=== PATIENT | male | born 1940 | race Caucasian/White ===

== ENCOUNTER → 2022-12-09 10:29 | Outpatient (BNVA) | payer MEDICARE, SELFPAY | PROVIDERS: PCP Family Medicine; Visit Provider Family Medicine | DX: Z00.00 Encounter for general adult medical examination without abnormal findings (principal); R53.83 Other fatigue; R35.1 Nocturia; I10 Essential (primary) hypertension | CPT/HCPCS: 80053; 80061; 82607; 83880; 84153; 85025; 86140 ==

== ENCOUNTER → 2024-04-19 08:59 | Outpatient (BNVA) | payer MEDICARE, OTHER, SELFPAY | PROVIDERS: PCP Family Medicine; Visit Provider Family Medicine | DX: I10 Essential (primary) hypertension (principal); R35.1 Nocturia; R53.83 Other fatigue; R63.4 Abnormal weight loss | CPT/HCPCS: 80053; 80061; 84153; 85025; 85651; 86140 ==

== ENCOUNTER 2024-04-21 08:20 | Outpatient (CLI) | payer MEDICARE, OTHER, SELFPAY ==
--- NOTE | 2024-04-21 08:22 | XR_ITS ---
WS: [id number] XR chest 2V* [id number] REASON FOR EXAM: cough FINDINGS: Moderate tortuosity and ectasia of the thoracic aorta. Normal heart size. Calcified granulomas disease in both hemithoraces. Eventration of the left hemidiaphragm. Bullous changes in the left lower lung. No acute pulmonary parenchymal or pleural abnormality. XR/XR chest 2V* [id number] IMPRESSION: No acute chest abnormality.
== END 2024-04-21 08:21 | disposition home or self-care (01) ==
LOC: RAD 08:21
PROVIDERS: PCP Family Medicine; Visit Provider Family Medicine
DX: J43.9 Emphysema, unspecified (principal); J84.10 Pulmonary fibrosis, unspecified; Q25.46 Tortuous aortic arch; I77.810 Thoracic aortic ectasia; Q79.1 Other congenital malformations of diaphragm; R05.9 Cough, unspecified
CPT/HCPCS: 71046

== ENCOUNTER 2024-05-23 06:00 | Outpatient (CLI) | payer MEDICARE, SELFPAY | END 2024-05-23 06:01 | disposition home or self-care (01) | LOC: RAD 06-01 16:53 | PROVIDERS: PCP Family Medicine; Visit Provider Family Medicine | DX: R63.4 Abnormal weight loss (principal); R79.89 Other specified abnormal findings of blood chemistry; R53.83 Other fatigue; R79.82 Elevated C-reactive protein (CRP); E11.9 Type 2 diabetes mellitus without complications | CPT/HCPCS: 80048; 84443; 86140; 86160; 86162; 86235; 86255; 86376 ==

== ENCOUNTER 2024-05-31 08:15 | Outpatient (CLI) | payer MEDICARE, SELFPAY ==
[2024-05-31] MEDS: iohexol 350 mg/mL 500 mL Btl (per mL) PO (08:29)
--- NOTE | 2024-05-31 08:30 | CT_ITS ---
WS: [id number] CT HEAD NONCONTRAST HISTORY: cva TECHNIQUE: Contiguous axial imaging performed through the brain in 2.0 mm imaging. Bone and soft tiss ue windows. Sagittal and coronal reformats reviewed. All CT scans at [facility] use at least one of these dose optimization techniques: automated exposure control; mA and/or kV adjustment per pa tient size (includes targeted exams where dose is matched to clinical indication); or iterative recon struction. DLP: 1143.51 mGy.cm COMPARISON: None available. No acute intracranial hemorrhage, midline shift or mass effect. Moderate atrophy with mild small vessel disease. No prior infarct. Ventricles: Ventricles are very slightly prominent based on the amount of atrophy. No inferior displacement of the cerebellar tonsils. Mild cerebellar atrophy. Paranasal sinuses: As visualized are clear. Mastoid air cells: Well pneumatized. Calvarium and scalp: Skull is intact with no soft tissue edema or swelling. CT/CT head wo con* [id number] IMPRESSION: 1. No acute intracranial hemorrhage or edema. 2. Moderate atrophy with minimal small vessel ischemic disease. 3. No prior infarct.
--- NOTE | 2024-05-31 09:00 | CT_ITS ---
WS: [id number] CT ABDOMEN AND PELVIS NONCONTRAST HISTORY: elevated Cr, elevated CRP, weight loss TECHNIQUE: Imaging performed through the abdomen and pelvis. Coronal and sagittal reformats are submi tted. All CT scans at [facility] use at least one of these dose optimization techniques: auto mated exposure control; mA and/or kV adjustment per patient size (includes targeted exams where dose is matched to clinical indication); or iterative reconstruction. DLP: 434.03 mGy.cm COMPARISON: None available. Lower thorax: Pulmonary hyperexpansion of the lung bases. No pneumonia. Benign calcified granuloma LE FT lung base. Fullness at the RIGHT hilum. Cannot be further evaluated without IV contrast. Liver: Normal size. Portal vein cannot be evaluated without IV contrast. Gallbladder: Normal gallbladder. No pericholecystic fluid or cholelithiasis. No gallbladder wall thic kening. Pancreas: Diffuse pancreatic atrophy. Spleen: Significantly enlarged spleen extends over a length of 15.0 cm. The normal central concavity is rounded encroaching upon the LEFT kidney. Adrenal glands: LEFT adrenal gland is not well visualized. The RIGHT adrenal gland contains a well-ci rcumscribed nodule measuring 1.3 cm. Right kidney: Mild atrophy. No obstruction. Left kidney: Mild atrophy with no obstruction. Aorta: Heavy dense calcification within the abdominal aorta. No aneurysm. Extensive lymphadenopathy within the abdomen and pelvis. Innumerable enlarged lymph nodes. Numerous m esenteric lymph nodes with the largest near the celiac axis measuring 2.5 cm. There are additional sc attered smaller central mesenteric lymph nodes. Extensive retroperitoneal lymphadenopathy at numerous stations. LEFT para-aortic lymph node 2.1 x 3.1 cm. Precaval and aortocaval and para-aortic lymph no jesse. Lymph nodes are also present rectal aortic. Bilateral iliac chain and pelvic lymph nodes. There is a large cluster of lymph nodes along the LEFT iliac chain measuring at least 4.4 x 3.1 cm. Externa l iliac artery lymph nodes with the largest on the LEFT measuring 3.5 x 4.9 cm. Bilateral inguinal ly mph nodes. There is a small amount of free fluid in the pelvis. Stomach is well distended with oral contrast. No small bowel obstruction. No colon obstruction. Pelvis: Small amount of free fluid. Only partially distended urinary bladder. Inguinal canals are pat ent bilaterally containing fat only. Osseous structures: Moderate spondylitic changes in the visualized thoracic and lumbar spines. No jesse tructive bone lesions. Facet joint arthropathy in the lumbar spine with components of stenosis. CT/CT abdomen pelvis wo con [id number] IMPRESSION: 1. Lymphadenopathy involving multiple stations in the abdomen and pelvis. Larg est lymph node cluster along the LEFT iliac chain 4.4 x 3.1 cm. Central mesente pao, celiac axis, retroperitoneal, iliac chain and pelvic lymph nodes as descri bed above. Findings are highly suspicious for lymphoma or leukemia. 2. Small amount of ascites in the pelvis. 3. Enlarged spleen. 4. Suspicious for lymph nodes at the RIGHT hilum as there is fullness present.
== END 2024-05-31 08:16 | disposition home or self-care (01) ==
LOC: RAD 08:16
PROVIDERS: PCP Family Medicine; Visit Provider Family Medicine
DX: I63.9 Cerebral infarction, unspecified (principal); R63.4 Abnormal weight loss; R79.89 Other specified abnormal findings of blood chemistry; R53.83 Other fatigue; R79.82 Elevated C-reactive protein (CRP); J84.10 Pulmonary fibrosis, unspecified; K86.89 Other specified diseases of pancreas; R16.1 Splenomegaly, not elsewhere classified; D35.01 Benign neoplasm of right adrenal gland; I70.0 Atherosclerosis of aorta; R59.0 Localized enlarged lymph nodes; M47.896 Other spondylosis, lumbar region; M46.94 Unspecified inflammatory spondylopathy, thoracic region
CPT/HCPCS: 70450; 74176; 88305

== ENCOUNTER 2024-05-31 19:03 | Inpatient (IN) | payer MEDICARE, SELFPAY ==
[2024-05-31] VITALS (8 sets, daily range): BP systolic 92–118; BP diastolic 50–65; PULSE 84–103; RESP 14–20; TEMP 37.1; O2SAT 92–98; BMI 25.4; BMI 25.6
--- NOTE | 2024-05-31 19:06 | ECG_ITS ---
[facility] Test Date: 2024-05-31 Pat Name: Isael Champagne Department: Room: Gender: Male It Specialist: : 1940 Requested By: Raciel Dasilva Order Number: [id number] Justin MD: Emily Crow M.D. Measurements Intervals [place] Rate: 93 P: 58 WA: 141 QRS: 57 QRSD: 140 T: 36 QT: 354 QTc: 440 Interpretive Statements SINUS RHYTHM WITH SINUS ARRHYTHMIA RIGHT BUNDLE BRANCH BLOCK [120+ ms QRS DURATION, UPRIGHT V1, 40+ ms S IN I/aVL/V4/V5/V6] No previous ECG available for comparison Electronically Signed On 06-01-2024 0:22:55 CDT by Emily Crow M.D. [email or web address]
--- NOTE | 2024-05-31 19:10 | XRR_ITS ---
PROCEDURE INFORMATION: Exam: XR Chest Exam date and time: 05/31/2024 7:13 PM Age: 83 years old Clinical indication: Tachypnea; Additional info: Weakness TECHNIQUE: Imaging protocol: Radiologic exam of the chest. Views: 1 view. COMPARISON: CR XR chest 2V* [id number] 04/21/2024 8:26 AM FINDINGS: Lungs: Unremarkable. No consolidation. Pleural spaces: Unremarkable. No pleural effusion. No pneumothorax. Heart/Mediastinum: Unremarkable. No cardiomegaly. Vasculature: Atherosclerotic aortic calcifications with tortuosity. Diaphragm: Asymmetric elevation of the right hemidiaphragm. Bones/joints: Unremarkable. XR/XR chest 1V portable [id number] IMPRESSION: No acute cardiopulmonary findings.
[2024-05-31 19:41] LABS: Basophils % 0.1 %; Eosinophils % 0.1 %; Hematocrit 23.5 % (37-53); Lymphocytes # 1.9 10^3/uL (0.8-4.8); Lymphocytes % 25.7 %; Mean Corpuscular HGB Conc 31.9 g/dL (30-55); Mean Corpuscular Hemoglobin 28.3 pg (27-33); Mean Corpuscular Volume 88.7 fl (82-101); Mean Platelet Volume 8.4 fL (7.4-10.4); Monocytes # 0.9 10^3/uL (0.2-0.9); Monocytes % 11.5 %; Neutrophils # 4.56 10^3/uL (1.8-7.7); Neutrophils % 60.7 %; Nucleated Red Blood Cells % 0 %; Platelet Count 173 10^3/cmm (157-399); Red Blood Count 2.65 10^6/uL (3.85-5.65); Red Cell Distribution Width 14.6 % (12.1-15.1); White Blood Count 7.51 10^3/uL (3.29-11.43)
--- NOTE | 2024-05-31 19:51 | W.ED.FALL ---
HPI - Fall General: Chief Complaint: Fall Stated Complaint: FALL; WEAKNESS Time Seen by Provider: 05/31/24 19:04 History of Present Illness: Patient presents to the ER by EMS. Complains of weakness multiple falls. When he was checked on today he was found down on the floor and could not get up out of the floor. He had an unknown downtime. His was placed in a halfway a couple months ago and patient says he just progressively went downhill ever since then. Related Data Home Medications Medication Instructions Recorded Confirmed aspirin 81 mg tablet,delayed 81 mg PO DAILY 12/09/22 05/23/24 release Previous Rx's Medication Instructions Recorded lisinopril 10 mg tablet 10 mg PO DAILY #90 tabs 01/11/24 famotidine 20 mg tablet (Pepcid) 20 mg PO BID #60 tabs 04/19/24 Allergies Allergy/AdvReac Type Severity Reaction Status Date / Time No Known Allergies Allergy Verified 05/23/24 07:11 Review of Systems General: Reports: 10 or more systems reviewed and unremarkable except in HPI and below PFSH ED PFSH: Medical History Hypertension Social History Smoking and tobacco/nicotine status: never used tobacco/nicotine Physical Exam Const: COMMON NORMALS: no acute distress, average body habitus, patient oriented x3, no limitations, healthy appearing, alert and well nourished HENMT: COMMON NORMALS: normocephalic, atraumatic, hearing grossly normal bilaterally, external ears normal, Normal external nose present and moist oral mucous membranes HEAD & SCALP: normocephalic and atraumatic NOSE: Normal external nose present EXTERNAL EAR: Yes external ears normal Neck/C-Spine: COMMON NORMALS: no JVD Chest: COMMONS NORMALS: normal inspection of the chest and normal palpation of entire chest wall Resp: COMMON NORMALS: normal respiratory effort, No retractions, No use of accessory muscles and clear to auscultation bilaterally AUSCULTATION: clear to auscultation bilaterally Cardio: COMMON NORMALS: no JVD, regular rate, regular rhythm, S1 normal heart sound present, S2 normal heart sound present, No gallops present (Cardio), No clicks present (Cardio), No murmurs present (Cardio) and No rub (Cardio) RATE: regular rate RHYTHM: regular rhythm HEART SOUNDS: S1 normal heart sound present and S2 normal heart sound present GI: COMMON NORMALS: Normal to inspection, nondistended, normoactive bowel sounds present, Soft to palpation, non-tender, No hepatosplenomegaly present, no masses and no bruits PALPATION: Yes Soft to palpation and Yes No hepatosplenomegaly present Neuro: COMMON NORMALS: patient oriented x3 SENSORIUM/ORIENTATION: Yes alert Course Vital Signs: Vital signs: Vital Signs Temperature 98.8 F 05/31/24 19:03 Pulse Rate 95 05/31/24 19:09 Respiratory Rate 18 05/31/24 19:09 Blood Pressure 118/65 05/31/24 19:09 Pulse Oximetry 97 05/31/24 19:09 Oxygen Delivery Me thod Room Air 05/31/24 19:09 MDM - Fall Medical Decision Making Patient is becoming more anemic his hemoglobin now 7.5 approximate 6 weeks ago was 11.9, sodium 10/08/2026 1 31-1 34 in the past BUN/creatinine 28 1.7 been 24 1.3, C-reactive protein still elevated at 143.5, urinalysis unremarkable, chest x-ray unremarkable, his PCP did get a head CT which was unremarkable and abdomen pelvis CT which was suspicious for lymphoma or leukemia due to lymphadenopathy involving multiple areas of the abdomen pelvis. Case was discussed with Dr. Boyd who will place patient in [facility] for further evaluation and treatment. Medical Records I reviewed the patient's medical records. Lab Data I reviewed the patient's lab results. 05/31/24 19:24 05/31/24 19:24 Radiology Impressions Chest X-Ray 05/31/24 19:10 IMPRESSION: No acute cardiopulmonary findings. Laboratory Results WBC 7.51 10^3/uL (3.29-11.43) 05/31/24 19: RBC 2.65 10^6/uL (3.85-5.65) L 05/31/24 19: Hgb 7.50 g/dL (11.27-16.99) L 05/31/24 19:24 Hct 23.5 % (37-53) L 05/31/24 19: MCV 88.7 fl (82-101) 05/31/24 19: MCH 28.3 pg (27-33) 05/31/24 19: MCHC 31.9 g/dL (30-55) 05/31/24 19: RDW 14.6 % (12.1-15.1) 05/31/24 19: Plt Count 173 10^3/cmm (157-399) 05/31/24 19: MPV 8.4 fL (7.4-10.4) 05/31/24 19: Neut % (Auto) 60.7 % 05/31/24 19: Lymph % (Auto) 25.7 % 05/31/24 19: [place] % (Auto) 11.5 % 05/31/24: Eos % (Auto) 0.1 % 05/31/24: Baso % (Auto) 0.1 % 05/31/24: Neut # (Auto) 4.56 10^3/uL (1.8-7.7) 05/31/24: Lymph # (Auto) 1.9 10^3/uL (0.8-4.8) 05/31/24: [place] # (Auto) 0.9 10^3/uL (0.2-0.9) 05/31/24: Eos # (Auto) 0.0 10^3/uL (0.0-0.8) 05/31/24: Baso # (Auto) 0.0 10^3/uL (0.0-0.1) 05/31/24: Nucleated RBC % (auto) 0 % 05/31/24: Nucleated RBCs # 0.0 /100WBC 05/31/24 19: Sodium 126 mmol/L (136-145) L 05/31/24 19:24 Potassium 4.0 mmol/L (3.5-5.1) 05/31/24 19: Chloride 93 mmol/L (98-107) L 05/31/24 19:24 Carbon Dioxide 21 mmol/L (22-29) L 05/31/24 19:24 Anion Gap 16.0 (5-19) 05/31/24 19: BUN 28 mg/dL (8-23) H 05/31/24 19:24 Creatinine 1.7 mg/dL (0.7-1.2) H 05/31/24 19:24 GFR Calculation Not Reportable 05/31/24 19:24 Glucose 116 mg/dL (65-115) H 05/31/24 19:24 Calculated Osmolality 268 mOsm/kg (285-295) L 05/31/24 19:24 Calcium 10.3 mg/dL (8.5-10.5) 05/31/24 19:24 Magnesium 2.1 mg/dL (1.7-2.3) 05/31/24 19:24 Total Bilirubin 0.8 mg/dL (0.15-1.2) 05/31/24 19:24 AST 32 U/L (0-40) 05/31/24 19:24 ALT 24 U/L (0-41) 05/31/24 19:24 Alkaline Phosphatase 70 U/L (40-130) 05/31/24 19:24 Creatine Kinase 70 U/L (39-308) 05/31/24 19:24 Troponin T Baseline 33 ng/L (0-15) H 05/31/24 19:24 Troponin T 120 Minute 33.28 ng/L (0-15) H 05/31/24 20:59 Delta Troponin T 0.28 ABS# (0-10) 05/31/24 20:59 C-Reactive Protein 143.5 mg/L (0.0-4.9) H 05/31/24 19:24 Total Protein 7.0 g/dL (6.6-8.7) 05/31/24 19:24 Albumin 2.2 g/dL (3.5-5.2) L 05/31/24 19:24 Globulin 4.8 g/dL (1.3-4.6) H 05/31/24 19:24 Urine Color Yellow (Yellow) 05/31/24 20:12 Urine Appearance Slightly cloudy (CLEAR) 05/31/24 20:12 Urine pH 5 (5-7) 05/31/24 20:12 Ur Specific [place] 1.020 (1.005-1.030) 05/31/24 20:12 Urine Protein Trace (Negative) 05/31/24 20:12 Urine Glucose (UA) Norm (Normal) 05/31/24 20:12 Urine Ketones 1+ (Negative) H 05/31/24 20:12 Urine Blood 2+ (Negative) H 05/31/24 20:12 Urine Nitrate Negative (Negative) 05/31/24 20:12 Urine Bilirubin 1+ (Negative) H 05/31/24 20:12 Urine Urobilinogen 4 mg/dL (Negative) H 05/31/24 20:12 Ur Leukocyte Esterase Negative (Negative) 05/31/24 20:12 Urine RBC 0-4 /hpf (0-2) H 05/31/24 20:12 Urine WBC 0-4 /hpf (0-5) H 05/31/24 20:12 Ur Squamous Epith Cells None /hpf (0-5) 05/31/24 20:12 Amorphous Sediment Not Reportable 05/31/24 20:12 Urine Bacteria Trace /hpf (NONE) 05/31/24 20:12 Hyaline Casts 5-10 /lpf H 05/31/24 20:12 Urine Mucus 2+ /hpf 05/31/24 20:12 All radiology interpretation(s) finalized by discharge Discharge Plan Discharge Patient Disposition: Admitted As Inpatient Clinical Impression: Generalized weakness, Anemia, Acute hyponatremia, Abdominal lymphadenopathy, Fall Condition: Stable Coding Level of Care Code ED Agriculture Consultant for [employer]
[2024-05-31 19:57] LABS: Slide Review Slide Review Perform
[2024-05-31 19:58] LABS: Troponin(5th) Baseline 33 ng/L (0-15)
[2024-05-31 19:59] LABS: Alanine Aminotransferase 24 U/L (0-41); Albumin Level 2.2 g/dL (3.5-5.2); Alkaline Phosphatase 70 U/L (40-130); Aspartate Amino Transferase 32 U/L (0-40); Blood Urea Nitrogen 28 mg/dL (8-23); C Reactive Protein 143.5 mg/L (0.0-4.9); Calcium 10.3 mg/dL (8.5-10.5); Carbon Dioxide 21 mmol/L (22-29); Chloride 93 mmol/L (98-107); Creatine Phosphokinase 70 U/L (39-308); Globulin 4.8 g/dL (1.3-4.6); Glucose 116 mg/dL (65-115); Magnesium 2.1 mg/dL (1.7-2.3); Osmolality Calculated 268 mOsm/kg (285-295); Sodium 126 mmol/L (136-145); Total Bilirubin 0.8 mg/dL (0.15-1.2)
[2024-05-31 20:01] LABS: Creatinine Clr Calc Pharmacy 32.6392
[2024-05-31] MEDS: ketorolac 30 mg/mL INJ 15 MG IVP (20:34)
[2024-05-31] MEDS: sodium chloride 0.9% 1,000 ML 999 ML IV (20:34)
[2024-05-31 20:36] LABS: Bilirubin Urine 1+ (Negative); Blood Urine 2+ (Negative); Glucose Urine UA Norm (Normal); Ketones Urine 1+ (Negative); Nitrate Urine Negative (Negative); Protein Urine Trace (Negative); Urine Appearance Slightly Cloudy (CLEAR); Urine Color Yellow (Yellow); Urobilinogen Urine 4 mg/dL (Negative); pH Urine 5 (5-7)
[2024-05-31 20:37] LABS: Add Urine Culture? No; Add Urine Microscopic? YES; Bacteria Urine TRACE /hpf; Leukocyte Esterase Urine Negative (Negative); Mucus Urine 2+ /hpf; RBC Urine 0-4 /hpf (0-2); WBC Urine 0-4 /hpf (0-5)
--- NOTE | 2024-05-31 21:11 | ECG_ITS ---
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 Measurements Intervals [place] Rate: 90 P: 59 MO: 151 QRS: 65 QRSD: 141 T: 48 QT: 358 QTc: 440 Interpretive Statements SINUS RHYTHM RIGHT BUNDLE BRANCH BLOCK [120+ ms QRS DURATION, UPRIGHT V1, 40+ ms S IN I/aVL/V4/V5/V6] Compared to ECG 05/31/2024 19:06:34 Sinus arrhythmia no longer present Electronically Signed On 06-01-2024 22:29:52 CDT by Emily Crow M.D. [id number]
[2024-05-31 21:25] LABS: Troponin 5 2HR 33.28 ng/L (0-15); Troponin 5 2HR Delta 0.28 ABS# (0-10)
--- NOTE | 2024-05-31 22:18 | CTR_ITS ---
PROCEDURE INFORMATION: Exam: CT Lumbar Spine Without Contrast Exam date and time: 05/31/2024 10:37 PM Age: 83 years old Clinical indication: Injury or trauma; Fall; Other: Pain; Additional info: Fall, back pain TECHNIQUE: Imaging protocol: Computed tomography of the lumbar spine without contrast. Radiation optimization: All CT scans at this facility use at least one of these dose optimization techniques: automated exposure control; mA and/or kV adjustment per patient size (includes targeted exams where dose is matched to clinical indication); or iterative reconstruction. COMPARISON: CT abdomen pelvis wo con [id number] 05/31/2024 9:47 AM RADIATION DOSE METRICS: Total DLP (mGy-cm): 985 FINDINGS: Bones/joints: No acute fracture. Vertebral body heights are maintained. Moderate multilevel spondylosis throughout the lumbar spine. Multilevel anterior osteophytes. Slight grade 1 retrolisthesis at L5-S1. Multilevel bilateral facet arthropathy. Disc bulge, ligamentum flavum thickening, bilateral facet arthropathy at L1-L2 resulting in nugh-ay-vvwyjzzl spinal stenosis and moderate bilateral foraminal narrowing. Similar findings at L2-L3. Disc bulge, ligamentum flavum thickening, and bilateral facet arthropathy at L3-L4 and L4-L5 result in severe spinal stenosis and severe bilateral foraminal narrowing. Disc bulge, ligamentum flavum thickening, bilateral facet arthropathy at L5-S1 result in moderate spinal stenosis and moderate bilateral foraminal narrowing. Stomach and bowel: Sigmoid diverticulosis. Vasculature: Atherosclerotic calcifications of the abdominal aorta and its branch vessels. Lymph nodes: Partially imaged retroperitoneal lymphadenopathy better assessed on same day CT abdomen/pelvis. Soft tissues: Unremarkable. CT/CT lumbar spine wo con* [id number] IMPRESSION: 1. No acute osseous findings. 2. Multilevel lumbar spondylosis with areas of severe spinal stenosis and severe bilateral foraminal narrowing. 3. Retroperitoneal lymphadenopathy, better assessed on same day CT abdomen/pelvis.
--- NOTE | 2024-05-31 22:18 | CTR_ITS ---
PROCEDURE INFORMATION: Exam: CT Chest Without Contrast; Diagnostic Exam date and time: 05/31/2024 10:34 PM Age: 83 years old Clinical indication: Other: Abdominal lymphadenopathy TECHNIQUE: Imaging protocol: Diagnostic computed tomography of the chest without contrast. Radiation optimization: All CT scans at this facility use at least one of these dose optimization techniques: automated exposure control; mA and/or kV adjustment per patient size (includes targeted exams where dose is matched to clinical indication); or iterative reconstruction. COMPARISON: CR (CHEST, ) 05/31/2024 7:13 PM RADIATION DOSE METRICS: Total DLP (mGy-cm): 557 FINDINGS: Lungs: No focal consolidation. Bibasilar atelectasis. Pleural spaces: Unremarkable. No pneumothorax. No pleural effusion. Heart: Unremarkable. No cardiomegaly. No pericardial effusion. Coronary arteries: Moderate coronary artery calcifications. Lymph nodes: Multiple enlarged bilateral supraclavicular lymph nodes are seen measuring up to 2.1 cm on the right and 1.8 cm on the left. Multiple enlarged bilateral axillary lymph nodes measure up to 1.8 cm on the right and 2.3 cm on the left. Enlarged right hilar lymph nodes measuring up to 1.9 cm. Prominent 0.7 cm cardiophrenic lymph node. Numerous enlarged upper abdominal lymph nodes are unchanged in better assessed on the same-day CT abdomen/pelvis. Vasculature: Moderate atherosclerotic calcifications of the thoracic aorta, including along the aortic valve plane. Diaphragm: Asymmetric elevation of the right hemidiaphragm. Spleen: Splenomegaly. Bones/joints: Multilevel degenerative changes of the thoracic spine. No acute fracture. Soft tissues: Unremarkable. Other findings: Scattered calcified granulomas bilaterally. CT/CT chest wo con [id number] IMPRESSION: 1. Numerous enlarged supraclavicular, axillary, and hilar lymph nodes. In conjunction with upper abdominal lymphadenopathy, findings are compatible with a lymphoproliferative disorder such as lymphoma/leukemia. 2. Bibasilar atelectasis. No active airspace disease. 3. Splenomegaly. 4. Additional ancillary findings as above.
--- NOTE | 2024-05-31 22:27 | P.HP_ITS ---
Providers/Chief Complaint 2 Primary Care Provider: Zain Yañez MD Chief Complaint: FALL; WEAKNESS History of Present Illness Isael Champagne is a 83 year old male with a past medical history of hypertension, who presents [facility] due to generalized weakness, fatigue, malaise, altered mental status. Currently patient is very hard of hearing, but he can follow commands, he can answer questions, but is quite forgetful, requires frequent redirection and, at times he does not know how to answer, he is alert to person, to place, not to time, no slurring of his speech, no facial droop, his complaints of weakness is more generalized. Reviewing records, on 05/23/2024, patient saw Dr. Yañez for weakness, more stumbling, there was concerns for a stroke, head CT ordered and completed today showed no acute stroke or intracranial bleed. Patient tells me that he is weakness is more generalized weakness, he feels weak all over, he has had a poor appetite, fatigue, malaise, weight loss. Denies any focal weakness and on examination he has more generalized weakness. But he does report stumbling a lot and falling more frequently. It is hard for me to get him to follow commands to do neurologic testing such as a [id number], or [id number], but he does tell me that he is quite unsteady on his feet, denies any loss of sensation in of his feet or his hands. He keeps telling me that he is weak all over and his back hurts him. He tells me that he fell sometime ago, and now his back is hurting him, no urinary continence, no bowel incontinence, denies any saddle or perianal anesthesia, no fevers. Patient had an abdominal CT scan done this morning, he tells me he does not remember the results but possible they are worried about something in his belly, I discussed with him that he has extensive lymphadenopathy, multiple stations of the abdomen and pelvis, findings are concerning for lymphoma or leukemia or Em simply multiple myeloma, his spleen is enlarged, he also has acute anemia. Will have to do a further workup, watch him here in the hospital, hydrate him as his creatinine is 1.7, hemoglobin is also low we will have to monitor his hemoglobin potentially might require blood. He denies any bloody or black stools. Review of Systems 2 Const: Reports: fatigue and malaise Card: Denies: chest pain Resp: Denies: dyspnea GI: Denies: abdominal pain Medications/Allergies Home Medications Medication Instructions Recorded Confirmed Last Taken Type aspirin 81 mg tablet,delayed 81 mg PO DAILY 12/09/22 05/23/24 Unknown History release lisinopril 10 mg tablet 10 mg PO DAILY #90 tabs 01/11/24 05/23/24 Unknown Rx famotidine 20 mg tablet (Pepcid) 20 mg PO BID #60 tabs 04/19/24 05/23/24 Unknown Rx Allergies Allergy/AdvReac Type Severity Reaction Status Date / Time No Known Allergies Allergy Verified 05/23/24 07:11 PFSH Acute 2 PFSH: Medical History Hypertension Social History Smoking and tobacco/nicotine status: never used tobacco/nicotine Vitals/I&O/Wt Last Vital Signs Temp 98.8 F 05/31/24 19:03 Pulse 98 05/31/24 22:01 Resp 20 H 05/31/24 22:01 BP 107/54 05/31/24 22:01 Pulse Ox 95 05/31/24 22:01 O2 Del Method Room Air 05/31/24 19:09 05/31/24 05/31/24 05/31/24 06:59 14:59 22:59 Intake Total 1000 / 1000 Balance 1000 / 1000 Weight last 48 hrs Weight 75.75 kg Physical Exam 2 Const: COMMON NORMALS: no acute distress ORIENTATION/CONSCIOUSNESS: Yes awake, Yes oriented to person and Yes oriented to place; not oriented to time HENMT: COMMON NORMALS: normocephalic HEAD & SCALP: normocephalic Eye: COMMON NORMALS: Equal, round and reactive pupils present Neck/C-Spine: COMMON NORMALS: no JVD Resp: COMMON NORMALS: normal respiratory effort, No retractions, No use of accessory muscles and clear to auscultation bilaterally AUSCULTATION: clear to auscultation bilaterally Cardio: COMMON NORMALS: regular rate, regular rhythm, S1 normal heart sound present and S2 normal heart sound present RATE: regular rate RHYTHM: r egular rhythm HEART SOUNDS: S1 normal heart sound present and S2 normal heart sound present GI: COMMON NORMALS: Normal to inspection, nondistended, normoactive bowel sounds present and Soft to palpation Extremity: COMMON NORMALS: no pedal edema Neuro: COMMON NORMALS: patient oriented x3 OTHER: Difficult to follow neurologic testing, has more generalized weakness, no facial droop, no slurring of his words, pupils equal round reactive to light, extraocular movements intact, cannot discern any focal weakness, Data 05/31/24 19:24 05/31/24 19:24 A&P Assessment and plan (1) Acute encephalopathy: (2) Abdominal lymphadenopathy: (3) Elevated C-reactive protein: (4) Generalized weakness: (5) Fatigue: (6) Anemia: Qualifiers: Anemia type: unspecified type Qualified Code(s): D64.9 - Anemia, unspecified (7) Acute hyponatremia: (8) Acute kidney injury: Plan Acute encephalopathy ? Monitor mentation closely ? Neurochecks ? NIH stroke scale ? Aspiration precautions ? Follow-up further testing Acute hyponatremia ? Likely secondary to dehydration ? IV fluids ? Monitor serum sodium Acute kidney injury ? Likely component of dehydration, IV fluids ? Monitor creatinine Acute anemia ? Given renal insufficiency, elevated calcium level, possibly a marker for multiple myeloma? ? Denies any blood or black stools ? Hemoccult stool ? Iron studies ? Protonix ? Carafate ? Monitor hemoglobin Will transfuse less than 7 Generalized weakness ? On examination has more generalized weakness and focal weakness ? Head CT no acute findings ? Likely multifactorial from reasons as above ? PT OT Abdominal lymphadenopathy ? CT/CT abdomen pelvis wo con [id number] IMPRESSION: 1. Lymphadenopathy involving multiple stations in the abdomen and pelvis. Largest lymph node cluster along the LEFT iliac chain 4.4 x 3.1 cm. Central mesenteric, celiac axis, retroperitoneal, iliac chain and pelvic lymph nodes as described above. Findings are highly suspicious for lymphoma or leukemia. 2. Small amount of ascites in the pelvis. 3. Enlarged spleen. 4. Suspicious for lymph nodes at the RIGHT hilum as there is fullness present. ? Ordered leukemia panel ? Ordered lymphoma panel ? Ordered beta-2 microglobulin ? CT of the chest ? Low back pain -CT lumbar spine ? Morphine for pain Full code exodus SCDs for DVT prophylaxis, Lovenox relatively contraindicated given history of anemia Attestations 2 Medical Necessity Statement*: Patient requires hospitalization, inpatient, greater than 2 midnights, for acute kidney injury, acute hyponatremia, generalized weakness, acute encephalopathy, acute anemia, abdominal lymphadenopathy Diagnoses Acute encephalopathy G93.40 Abdominal lymphadenopathy R59.0 Elevated C-reactive protein R79.82 Generalized weakness R53.1 Fatigue R53.83 Anemia D64.9 Anemia type: unspecified type Acute hyponatremia E87.1 Acute kidney injury N17.9
[2024-05-31 22:33] LABS: Lactate Dehydrogenase 149 U/L (135-225); Uric Acid 9.8 mg/dL (3.4-7.0)
[2024-05-31 22:38] LABS: Erythrocyte Sedimentation Rate 61 mm/hr (0-10)
[2024-05-31] MEDS: pantoprazole 40 mg SDV IVP (22:51)
[2024-05-31] MEDS: sucralfate 1 gm/10 mL Oral Liq UDC PO (22:51)
[2024-05-31] MEDS: sodium chloride 0.9% 1,000 ML 100 ML IV (22:52)
[2024-05-31 23:14] LABS: LAB Peripheral Smear Sent for Review
[2024-05-31] MEDS: acetaminophen 325 mg Tablet 650 MG PO (23:53)
[2024-06-01] VITALS (17 sets, daily range): BP systolic 85–150; BP diastolic 41–69; PULSE 17–108; RESP 13–79; TEMP 36.3–37.1; O2SAT 94–97
[2024-06-01 00:14] LABS: NT Pro B Type Natriuretic Pept 1897 pg/mL (0-450); Procalcitonin 1.05 ng/mL (0-0.5)
[2024-06-01 00:35] LABS: Iron 23 ug/dL (59-158); Percent Saturation 38.9 % (20-50); Total Iron Binding Capacity 59 mcg/dl; Transferrin 61 mg/dL (200-360); Unsaturated Iron Binding 36 ug/dL (112-347)
[2024-06-01 00:51] LABS: INR 1.42 (0.8-1.2)
[2024-06-01 00:51] LABS: Ferritin 1034 ng/mL (30-400)
[2024-06-01 00:52] LABS: Partial Thromboplastin Time 36.3 SECONDS (23.9-36.7)
[2024-06-01 00:59] LABS: Lactic Sepsis W/Reflex 1.5 mmol/L (0.5-2.2)
[2024-06-01 01:09] LABS: Chol HDL Ratio 7.33 mg/dL (1.0-5.00); Cholesterol 110 mg/dL (0-200); HDL Cholesterol 15 mg/dL (60-100); LDL Cholesterol Calculated 74 mg/dL (50-129); LDL HDL Ratio 4.93 RATIO (0.00-3.22); Thyroid Stimulating Hormone 0.94 uIU/mL (0.27-4.20); Triglycerides 106 mg/dL (0-150)
--- NOTE | 2024-06-01 01:34 | ECG_ITS ---
[facility] Test Date: 2024-06-01 Pat Name: Isael Champagne Department: Room: 279 Gender: Male Shank Turner: : 1940 Requested By: Raciel Dasilva Order Number: [id number] Justin MD: Emily Crow M.D. Measurements Intervals Proctor Rate: 77 P: 62 IN: 142 QRS: 56 QRSD: 142 T: 38 QT: 390 QTc: 443 Interpretive Statements SINUS RHYTHM RIGHT BUNDLE BRANCH BLOCK [120+ ms QRS DURATION, UPRIGHT V1, 40+ ms S IN I/aVL/V4/V5/V6] Compared to ECG 05/31/2024 21:29:03 No significant changes Electronically Signed On 06-01-2024 22:29:32 CDT by Emily Crow M.D. [email or web address]
[2024-06-01 02:22] LABS: Estmated Average Glucose 128; Hemoglobin A1C 6.1 % (4.0-6.0)
[2024-06-01 02:23] LABS: Basophils % 0.2 %; Eosinophils % 0.2 %; Lymphocytes % 32.2 %; Mean Corpuscular Volume 90.5 fl (82-101); Monocytes # 0.8 10^3/uL (0.2-0.9); Monocytes % 12.3 %; Neutrophils # 3.41 10^3/uL (1.8-7.7); Neutrophils % 53.7 %; Nucleated Red Blood Cells % 0 %; Platelet Count 158 10^3/cmm (157-399); Red Blood Count 2.32 10^6/uL (3.85-5.65); Red Cell Distribution Width 14.7 % (12.1-15.1); White Blood Count 6.34 10^3/uL (3.29-11.43)
[2024-06-01 02:41] LABS: Troponin 5 6HR 33.86 ng/L (0-15); Troponin 5 6HR Delta 0.86 ng/L (0-12)
[2024-06-01 02:44] LABS: Anion Gap 12.7 (5-19); Blood Urea Nitrogen 29 mg/dL (8-23); Calcium 9.8 mg/dL (8.5-10.5); Carbon Dioxide 22 mmol/L (22-29); Chloride 97 mmol/L (98-107); Creatinine Clr Calc Pharmacy 29.3057; Glucose 115 mg/dL (65-115); Osmolality Calculated 273 mOsm/kg (285-295); Potassium 3.7 mmol/L (3.5-5.1); Sodium 128 mmol/L (136-145)
[2024-06-01] MEDS: sucralfate 1 gm/10 mL Oral Liq UDC PO ×4 (03:47→23:00)
[2024-06-01] MEDS: sodium chloride 0.9% 1,000 ML 100 ML IV (07:41)
--- NOTE | 2024-06-01 08:28 | US_ITS ---
WS: [id number] ULTRASOUND-GUIDED LEFT AXILLARY LYMPH NODE BIOPSY. INDICATION: Lymphoma TECHNIQUE: The procedure, including risks, benefits, and complications were discussed with the patien t who agreed to proceed. Timeout was performed. Using sterile technique, patient was prepped and drap ed in usual sterile fashion. After 1% lidocaine, using ultrasound guidance, approximately 7 samples w ere obtained of the largest LEFT axillary lymph node. Samples were placed in RPMI and formalin. No im mediate complications. Pathology is pending. US/US biopsy [id number] IMPRESSION: Uncomplicated LEFT axillary lymph node biopsy.
[2024-06-01 08:57] LABS: Sodium 130 mmol/L (136-145)
[2024-06-01] MEDS: pantoprazole 40 mg SDV IVP ×2 (09:35→23:00)
[2024-06-01 10:57] LABS: Hematocrit 26.9 % (37-53)
--- NOTE | 2024-06-01 11:45 | P.PN_ITS ---
Subjective 2 Subjective: History and physical was reviewed. Patient reports significant weakness. is in a nursing facility. I discussed with him his enlarged nymph nodes, need for a biopsy, and concern for possible lymphoma. Medications: Reviewed: Yes Vitals/I&O/Wt Last Vital Signs Temp 97.5 F L 06/01/24 08:00 Pulse 87 06/01/24 10:57 Resp 17 06/01/24 08:00 BP 99/59 06/01/24 08:00 Pulse Ox 97 06/01/24 10:57 O2 Del Method Room Air 06/01/24 10:57 05/31/24 06/01/24 06/01/24 22:59 06:59 14:59 Intake Total 1000 / 1000 0 / 1000 1761.667 / 1761.667 Output Total 75 / 75 Balance 1000 / 1000 0 / 1000 1686.667 / 1686.667 Weight last 48 hrs Weight 78.16 kg Weight 76.374 kg Weight 75.75 kg Physical Exam 2 Narrative: General Exam no distress Cardiovascular regular in rhythm Lungs clear Abdomen is soft Extremities no sinus clubbing edema Data 06/01/24 10:49 06/01/24 08:30 Micro: Microbiology 06/01/24 11:00 Occult Blood (FIT) - Final Stool - Stool Aspirate 05/31/24 23:39 Blood Culture - Preliminary Blood SPECIMEN COLLECTED 05/31/24 23:34 Blood Culture - Preliminary Blood SPECIMEN COLLECTED A&P Assessment and plan (1) Acute encephalopathy: Significantly improved. Likely secondary to process causing lymphadenopathy, anemia (2) Abdominal lymphadenopathy: Arrange for biopsy of accessible lymph node, likely axilla Discussed briefly with oncology. Biopsy, follow-up next week based tentative plan (3) Elevated C-reactive protein: (4) Generalized weakness: PT evaluation (5) Fatigue: (6) Anemia: Transfuse packed red blood cells. Repeat hemoglobin over 8. Recheck tomorrow Stool Hemoccult Protonix IV Qualifiers: Anemia type: unspecified type Qualified Code(s): D64.9 - Anemia, unspecified (7) Acute hyponatremia: Improving with IV fluids. Continue and recheck tomorrow. Reduce to 75 cc an hour. (8) Acute kidney injury: Recheck tomorrow No evidence of obstruction on imaging Plan Borderline hypotension. Hold blood pressure medication of lisinopril. Full code SCDs for DVT prophylaxis Anticoagulation pharmacologically contraindicated secondary to severe anemia Attestations 2 Medical Necessity Statement*: Needs continued hospitalization for evaluation of severe lymphadenopathy, severe anemia with need for transfusion Diagnoses Acute encephalopathy G93.40 Abdominal lymphadenopathy R59.0 Elevated C-reactive protein R79.82 Generalized weakness R53.1 Fatigue R53.83 Anemia D64.9 Anemia type: unspecified type Acute hyponatremia E87.1 Acute kidney injury N17.9 Time Spent (min) 24
[2024-06-01 14:36] LABS: Sodium 130 mmol/L (136-145)
--- NOTE | 2024-06-01 14:50 | PC.OT ---
OT TREATMENT ATTEMPTED. PATIENT SLEEPING SOUNDLY; SNORING AND UNABLE TO AWAKEN. EVALUATION TO BE ATTEMPTED AGAIN AT A LATER TIME.
[2024-06-01 20:41] LABS: Sodium 131 mmol/L (136-145)
[2024-06-02] VITALS (18 sets, daily range): BP systolic 98–137; BP diastolic 48–68; PULSE 87–108; RESP 16–19; TEMP 36.6–37.4; O2SAT 93–97
[2024-06-02] MEDS: sodium chloride 0.9% 1,000 ML 75 ML IV (02:27)
[2024-06-02] MEDS: sucralfate 1 gm/10 mL Oral Liq UDC PO ×4 (04:18→22:45)
[2024-06-02 04:49] LABS: PROTEIN, TOTAL 6.5 g/dL (6.1-8.1)
[2024-06-02 05:56] LABS: Basophils % 0.2 %; Eosinophils % 0.2 %; Hematocrit 24.6 % (37-53); Lymphocytes # 2.4 10^3/uL (0.8-4.8); Lymphocytes % 38.1 %; Mean Corpuscular HGB Conc 30.9 g/dL (30-55); Mean Corpuscular Hemoglobin 28.3 pg (27-33); Mean Corpuscular Volume 91.4 fl (82-101); Mean Platelet Volume 8.6 fL (7.4-10.4); Monocytes # 0.7 10^3/uL (0.2-0.9); Monocytes % 11.7 %; Neutrophils # 2.95 10^3/uL (1.8-7.7); Neutrophils % 47.7 %; Nucleated Red Blood Cells % 0 %; Platelet Count 152 10^3/cmm (157-399); Red Blood Count 2.69 10^6/uL (3.85-5.65); Red Cell Distribution Width 15.6 % (12.1-15.1); White Blood Count 6.17 10^3/uL (3.29-11.43)
[2024-06-02 06:21] LABS: Alanine Aminotransferase 16 U/L (0-41); Albumin Level 1.7 g/dL (3.5-5.2); Alkaline Phosphatase 62 U/L (40-130); Anion Gap 12.7 (5-19); Aspartate Amino Transferase 21 U/L (0-40); Blood Urea Nitrogen 25 mg/dL (8-23); Calcium 10.1 mg/dL (8.5-10.5); Carbon Dioxide 21 mmol/L (22-29); Chloride 102 mmol/L (98-107); Creatinine Clr Calc Pharmacy 44.1067; Globulin 4.4 g/dL (1.3-4.6); Glucose 102 mg/dL (65-115); Osmolality Calculated 279 mOsm/kg (285-295); Potassium 3.7 mmol/L (3.5-5.1); Sodium 132 mmol/L (136-145); Total Bilirubin 0.7 mg/dL (0.15-1.2); Total Protein 6.1 g/dL (6.6-8.7)
[2024-06-02] MEDS: pantoprazole 40 mg SDV IVP (09:58)
--- NOTE | 2024-06-02 10:15 | P.PN_ITS ---
Subjective 2 Subjective: Feels little bit better, but is still very weak. Has not really moved around, but gets a little dizzy when he does. Medications: Reviewed: Yes Vitals/I&O/Wt Last Vital Signs Temp 98.1 F 06/02/24 10:02 Pulse 91 06/02/24 10:02 Resp 16 06/02/24 10:02 BP 104/58 06/02/24 10:02 Pulse Ox 93 06/02/24 10:02 O2 Del Method Room Air 06/02/24 00:00 06/01/24 06/02/24 06/02/24 22:59 06:59 14:59 Intake Total 328.333 / 2881.667 516.25 / 516.25 Output Total 100 / 275 Balance 228.333 / 2606.667 516.25 / 516.25 Weight last 48 hrs Weight 81.703 kg Weight 78.16 kg Weight 76.374 kg Weight 75.75 kg Physical Exam 2 Narrative: General Exam no distress Cardiovascular regular in rhythm Lungs clear Abdomen is soft Extremities no sinus clubbing edema Data 06/02/24 05:20 06/02/24 05:20 Micro: Microbiology 05/31/24 23:39 Blood Culture - Preliminary Blood NEGATIVE TO DATE 05/31/24 23:34 Blood Culture - Preliminary Blood NEGATIVE TO DATE 06/01/24 11:00 Occult Blood (FIT) - Final Stool - Stool Aspirate A&P Assessment and plan (1) Acute encephalopathy: Appears to be resolved. Likely secondary to process causing lymphadenopathy, anemia (2) Abdominal lymphadenopathy: Arrange for biopsy of accessible lymph node, likely axilla. This was performed on June 01. Pathology pending Discussed briefly with oncology. Biopsy, follow-up next week based tentative plan (3) Elevated C-reactive protein: (4) Generalized weakness: PT evaluation appreciated (5) Fatigue: Still present (6) Anemia: Stool Hemoccult negative Has been transfused 1 unit, but hemoglobin still 7.6. Considering bone marrow is likely etiology will transfuse another unit. He is still symptomatic. Recheck CBC tomorrow Continue Protonix IV Qualifiers: Anemia type: unspecified type Qualified Code(s): D64.9 - Anemia, unspecified (7) Acute hyponatremia: Improved. Discontinue IV fluids. Recheck tomorrow (8) Acute kidney injury: Recheck tomorrow No evidence of obstruction on imaging Plan Borderline hypotension. Hold blood pressure medication of lisinopril. Full code SCDs for DVT prophylaxis Anticoagulation pharmacologically contraindicated secondary to severe anemia Attestations 2 Medical Necessity Statement*: Needs continued hospitalization for further transfusion, recheck of hemoglobin, close monitoring of blood pressure which is borderline. Diagnoses Acute encephalopathy G93.40 Abdominal lymphadenopathy R59.0 Elevated C-reactive protein R79.82 Generalized weakness R53.1 Fatigue R53.83 Anemia D64.9 Anemia type: unspecified type Acute hyponatremia E87.1 Acute kidney injury N17.9 Time Spent (min) 25
[2024-06-02 13:53] LABS: Leukemia Profile (BBPL) See Report
[2024-06-02 14:33] LABS: ABNORMAL PROTEIN BAND 1 0.9 g/dL (NONE DETECTED); ALBUMIN 1.9 g/dL (3.8-4.8); ALPHA 1 GLOBULIN 0.6 g/dL (0.2-0.3); ALPHA 2 GLOBULIN 0.7 g/dL (0.5-0.9); BETA 1 GLOBULIN 0.2 g/dL (0.4-0.6); BETA 2 GLOBULIN 0.4 g/dL (0.2-0.5); GAMMA GLOBULIN 2.7 g/dL (0.8-1.7)
[2024-06-02 17:51] LABS: Hematocrit 29.2 % (37-53)
[2024-06-02] MEDS: pantoprazole DR 40 mg Tablet PO (18:56)
[2024-06-03] VITALS (8 sets, daily range): BP systolic 114–134; BP diastolic 55–85; PULSE 72–110; RESP 15–19; TEMP 36.6–37.1; O2SAT 92–97
[2024-06-03] MEDS: sucralfate 1 gm/10 mL Oral Liq UDC PO ×4 (04:28→22:47)
[2024-06-03 05:26] LABS: Basophils % 0.3 %; Eosinophils # 0.1 10^3/uL (0.0-0.8); Eosinophils % 1.8 %; Hematocrit 27.5 % (37-53); Lymphocytes # 2.9 10^3/uL (0.8-4.8); Lymphocytes % 42.5 %; Mean Corpuscular Hemoglobin 28.3 pg (27-33); Mean Corpuscular Volume 88.4 fl (82-101); Mean Platelet Volume 8.2 fL (7.4-10.4); Monocytes # 0.7 10^3/uL (0.2-0.9); Monocytes % 10.6 %; Neutrophils # 2.88 10^3/uL (1.8-7.7); Neutrophils % 42.4 %; Nucleated Red Blood Cells % 0 %; Platelet Count 153 10^3/cmm (157-399); Red Blood Count 3.11 10^6/uL (3.85-5.65); Red Cell Distribution Width 14.8 % (12.1-15.1); White Blood Count 6.78 10^3/uL (3.29-11.43)
[2024-06-03 05:42] LABS: Slide Review Slide Review Perform
[2024-06-03 05:47] LABS: Anion Gap 10.5 (5-19); Blood Urea Nitrogen 20 mg/dL (8-23); Calcium 10.8 mg/dL (8.5-10.5); Carbon Dioxide 23 mmol/L (22-29); Chloride 99 mmol/L (98-107); Glucose 102 mg/dL (65-115); Osmolality Calculated 271 mOsm/kg (285-295); Potassium 3.5 mmol/L (3.5-5.1); Sodium 129 mmol/L (136-145)
[2024-06-03] MEDS: pantoprazole DR 40 mg Tablet PO ×2 (08:46→17:33)
[2024-06-03] MEDS: FUROsemide 10 mg/mL SDV 2mL 20 MG IVP (08:46)
--- NOTE | 2024-06-03 09:43 | P.PN_ITS ---
Subjective 2 Subjective: Isael reports he is feeling little bit stronger. He wishes he could go to the nursing facility today. No chest pain. Medications: Reviewed: Yes Vitals/I&O/Wt Last Vital Signs Temp 98.3 F 06/03/24 08:00 Pulse 97 06/03/24 08:00 Resp 16 06/03/24 08:00 BP 125/85 06/03/24 08:00 Pulse Ox 92 06/03/24 08:00 O2 Del Method Room Air 06/03/24 08:00 Weight last 48 hrs Weight 82.157 kg Weight 81.703 kg Physical Exam 2 Narrative: General Exam no distress Cardiovascular regular in rhythm Lungs clear Abdomen is soft Extremities no sinus clubbing edema Data 06/03/24 05:16 06/03/24 05:16 A&P Assessment and plan (1) Acute encephalopathy: Appears to be resolved. Likely secondary to process causing lymphadenopathy, anemia (2) Abdominal lymphadenopathy: Arrange for biopsy of accessible lymph node, likely axilla. This was performed on June 01. Pathology pending Discussed briefly with oncology. Biopsy, follow-up next week based tentative plan Calcium slightly high today. Recheck tomorrow (3) Elevated C-reactive protein: (4) Generalized weakness: PT evaluation appreciated (5) Fatigue: Still present (6) Anemia: Stool Hemoccult negative Has been transfused 1 unit, but hemoglobin still 7.6. Transfused a second unit on June 04 Now he is less symptomatic in regards to his anemia. Check CBC tomorrow Change Protonix to p.o. Qualifiers: Anemia type: unspecified type Qualified Code(s): D64.9 - Anemia, unspecified (7) Acute hyponatremia: Recurrent. Lasix 20 mg IV x 1. Recheck BMP tomorrow. (8) Acute kidney injury: Recheck tomorrow No evidence of obstruction on imaging Plan Hyponatremia. Lasix 20 mg IV x 1, recheck tomorrow Borderline hypotension. Hold blood pressure medication of lisinopril. Full code SCDs for DVT prophylaxis Anticoagulation pharmacologically contraindicated secondary to severe anemia Attestations 2 Medical Necessity Statement*: Will need continued hospitalization, for close monitoring secondary to severe anemia in this patient with concern of lymphoma and close follow-up of hyponatremia Diagnoses Acute encephalopathy G93.40 Abdominal lymphadenopathy R59.0 Elevated C-reactive protein R79.82 Generalized weakness R53.1 Fatigue R53.83 Anemia D64.9 Anemia type: unspecified type Acute hyponatremia E87.1 Acute kidney injury N17.9 Time Spent (min) 25
[2024-06-03] MEDS: tamsulosin 0.4 mg Capsule PO (10:52)
[2024-06-04] VITALS (8 sets, daily range): BP systolic 104–137; BP diastolic 51–66; PULSE 85–111; RESP 15–18; TEMP 36.6–37.9; O2SAT 91–95
[2024-06-04 03:27] LABS: Basophils % 0.4 %; Eosinophils # 0.1 10^3/uL (0.0-0.8); Eosinophils % 1.1 %; Hematocrit 28.2 % (37-53); Lymphocytes # 3.3 10^3/uL (0.8-4.8); Lymphocytes % 45.4 %; Mean Corpuscular HGB Conc 31.9 g/dL (30-55); Mean Corpuscular Hemoglobin 28.3 pg (27-33); Mean Corpuscular Volume 88.7 fl (82-101); Monocytes # 0.7 10^3/uL (0.2-0.9); Monocytes % 10.1 %; Neutrophils # 2.96 10^3/uL (1.8-7.7); Neutrophils % 40.8 %; Nucleated Red Blood Cells % 0 %; Platelet Count 117 10^3/cmm (157-399); Red Blood Count 3.18 10^6/uL (3.85-5.65); White Blood Count 7.25 10^3/uL (3.29-11.43)
[2024-06-04 03:50] LABS: Alanine Aminotransferase 19 U/L (0-41); Albumin Level 1.9 g/dL (3.5-5.2); Alkaline Phosphatase 74 U/L (40-130); Anion Gap 11.4 (5-19); Aspartate Amino Transferase 37 U/L (0-40); Blood Urea Nitrogen 19 mg/dL (8-23); Calcium 11.3 mg/dL (8.5-10.5); Carbon Dioxide 25 mmol/L (22-29); Chloride 97 mmol/L (98-107); Globulin 4.8 g/dL (1.3-4.6); Glucose 104 mg/dL (65-115); Magnesium 1.7 mg/dL (1.7-2.3); Osmolality Calculated 273 mOsm/kg (285-295); Potassium 3.4 mmol/L (3.5-5.1); Sodium 130 mmol/L (136-145); Total Bilirubin 0.9 mg/dL (0.15-1.2); Total Protein 6.7 g/dL (6.6-8.7)
[2024-06-04 03:54] LABS: Slide Review Slide Review Perform
[2024-06-04] MEDS: sucralfate 1 gm/10 mL Oral Liq UDC PO ×4 (04:07→21:57)
[2024-06-04] MEDS: pantoprazole DR 40 mg Tablet PO ×2 (09:07→16:21)
[2024-06-04] MEDS: tamsulosin 0.4 mg Capsule PO (09:07)
--- NOTE | 2024-06-04 10:53 | P.PN_ITS ---
Subjective 2 Subjective: Patient reports he feels tired, but a little bit better. Not dizzy. Denies any confusion. Medications: Reviewed: Yes Vitals/I&O/Wt Last Vital Signs Temp 98.5 F 06/04/24 08:26 Pulse 88 06/04/24 08:26 Resp 18 06/04/24 08:26 BP 112/61 06/04/24 08:26 Pulse Ox 93 06/04/24 08:26 O2 Del Method Room Air 06/04/24 08:26 06/03/24 06/04/24 06/04/24 22:59 06:59 14:59 Intake Total 240 / 240 Balance 240 / 240 Weight last 48 hrs Weight 75.977 kg Weight 82.157 kg Physical Exam 2 Narrative: General Exam no distress Cardiovascular regular in rhythm Lungs clear Abdomen is soft Extremities no sinus clubbing edema Data 06/04/24 03:13 06/04/24 03:13 A&P Assessment and plan (1) Acute encephalopathy: Appears to be resolved. Likely secondary to process causing lymphadenopathy, anemia (2) Abdominal lymphadenopathy: Arrange for biopsy of accessible lymph node, likely axilla. This was performed on June 01. Pathology pending Discussed briefly with oncology. Biopsy, follow-up next week based tentative plan Calcium slightly higher. I believe he is a little dehydrated. Calcium corrected for albumin is 13. He does not appear to be having significant symptoms currently. Will give him some fluids, and recheck calcium tomorrow. If this continues to progress, consider treatment. Will go ahead and check his uric acid. LDH. (3) Elevated C-reactive protein: (4) Generalized weakness: PT evaluation appreciated (5) Fatigue: Still present (6) Anemia: Stool Hemoccult negative Has been transfused 1 unit, but hemoglobin still 7.6. Transfused a second unit on June 04 Hemoglobin stable. Check CBC daily Change Protonix to p.o. Qualifiers: Anemia type: unspecified type Qualified Code(s): D64.9 - Anemia, unspecified (7) Acute hyponatremia: Check cortisol level. Low but stable (8) Acute kidney injury: Recheck tomorrow. Improved No evidence of obstruction on imaging Plan Hypokalemia, supplement. Check tomorrow. Borderline hypotension. Hold blood pressure medication of lisinopril. Full code SCDs for DVT prophylaxis Anticoagulation pharmacologically contraindicated secondary to severe anemia Attestations 2 Medical Necessity Statement*: Needs continued hospitalization, for evaluation of widespread lymphadenopathy, mainly in the abdomen, with concern of lymphoma in this patient with hyponatremia, weakness, anemia. Needs skilled placement. Diagnoses Acute encephalopathy G93.40 Abdominal lymphadenopathy R59.0 Elevated C-reactive protein R79.82 Generalized weakness R53.1 Fatigue R53.83 Anemia D64.9 Anemia type: unspecified type Acute hyponatremia E87.1 Acute kidney injury N17.9 Time Spent (min) 24
[2024-06-04] MEDS: potassium chloride ER 20 mEq Tablet 40 MEQ PO (11:01)
[2024-06-04] MEDS: sodium chloride 0.9% 1,000 ML 75 ML IV (11:02)
[2024-06-04 11:22] LABS: Lactate Dehydrogenase 118 U/L (135-225); Uric Acid 7.2 mg/dL (3.4-7.0)
[2024-06-04 11:32] LABS: Cortisol Random 18.02 ug/dL (2.47-19.5)
[2024-06-05] VITALS: BP 138/65; PULSE 115; RESP 18; TEMP 38.2; O2SAT 92
[2024-06-05] MEDS: sodium chloride 0.9% 1,000 ML 75 ML IV (00:09)
[2024-06-05] MEDS: acetaminophen 325 mg Tablet 650 MG PO (01:01)
[2024-06-05] MEDS: sucralfate 1 gm/10 mL Oral Liq UDC PO (03:33)
[2024-06-05 03:45] LABS: Mean Corpuscular HGB Conc 31.4 g/dL (30-55); Mean Corpuscular Hemoglobin 28.6 pg (27-33); Mean Corpuscular Volume 90.9 fl (82-101); Mean Platelet Volume 8.3 fL (7.4-10.4); Platelet Count 143 10^3/cmm (157-399); Red Blood Count 3.08 10^6/uL (3.85-5.65); Red Cell Distribution Width 15.2 % (12.1-15.1); White Blood Count 8.99 10^3/uL (3.29-11.43)
[2024-06-05 04:00] VITALS: BP 107/51; BP 110/53; BP 115/50; PULSE 80; PULSE 84; PULSE 86; RESP 18; TEMP 37; O2SAT 92
[2024-06-05 04:05] LABS: Alanine Aminotransferase 27 U/L (0-41); Albumin Level 1.7 g/dL (3.5-5.2); Alkaline Phosphatase 81 U/L (40-130); Anion Gap 11.8 (5-19); Aspartate Amino Transferase 55 U/L (0-40); Blood Urea Nitrogen 22 mg/dL (8-23); Calcium 11.3 mg/dL (8.5-10.5); Carbon Dioxide 24 mmol/L (22-29); Chloride 98 mmol/L (98-107); Creatinine Clr Calc Pharmacy 50.5066; Globulin 4.8 g/dL (1.3-4.6); Glucose 105 mg/dL (65-115); Osmolality Calculated 274 mOsm/kg (285-295); Potassium 3.8 mmol/L (3.5-5.1); Sodium 130 mmol/L (136-145); Total Bilirubin 0.9 mg/dL (0.15-1.2); Total Protein 6.5 g/dL (6.6-8.7)
[2024-06-05 04:15] LABS: Slide Review Slide Review Perform; Total Cells Counted 100 (0-100)
[2024-06-05 04:16] LABS: Absolute Neutrophil 3.8 10^3/cmm (1.4-6.5); Absolute Segmented Neutrophil 3.7 10/cmm (1.6-7.1); Band Neutrophils Absolute 0.1 10^3/cmm (0.0-1.2); Eosinophils 0 %; Lymphocytes 44 %; Lymphocytes Absolute 4.2 10^3/cmm (1.2-3.4); Monocytes Absolute 0.5 10^3/cmm (0.1-0.6); Platelet Estimate Normal (Normal); Segmented Neutrophils 41 %
[2024-06-05 05:24] VITALS: PULSE 78
[2024-06-05 07:22] VITALS: BP 100/55; PULSE 79; RESP 19; TEMP 36.5; O2SAT 92
[2024-06-05] MEDS: tamsulosin 0.4 mg Capsule PO (07:35)
[2024-06-05] MEDS: pantoprazole DR 40 mg Tablet PO (07:35)
--- NOTE | 2024-06-05 09:24 | P.DS_ITS ---
Discharge Providers Date of Admission: 05/31/24 22:05 Date of Discharge: June 05, 2024 Attending Provider at Admission: John Boyd MD Attending Provider at Discharge: Orlin Call MD Primary Care Provider: Zain Yañez MD Diagnoses at Discharge Discharge Diagnosis (1) Acute encephalopathy: Status: Acute (2) Abdominal lymphadenopathy: Status: Acute (3) Elevated C-reactive protein: Status: Acute (4) Generalized weakness: Status: Acute (5) Fatigue: Status: Acute (6) Anemia: Status: Acute Qualifiers: Anemia type: unspecified type Qualified Code(s): D64.9 - Anemia, unspecified (7) Acute hyponatremia: Status: Acute (8) Acute kidney injury: Status: Acute Reason for Visit Reason for Visit: FALL; WEAKNESS Hospital Course Hospital Course Isael Champagne is a 83 year old male with a past medical history of hypertension, who presents [facility] due to generalized weakness, fatigue, malaise, altered mental status, found to have acute metabolic encephalopathy, lymphadenopathy, anemia, hyponatremia, hypercalcemia, and acute kidney injury. His encephalopathy was suspected be secondary to side effects from his underlying pathology from lymphadenopathy. He underwent biopsy axillary lymph node with pathology currently pending. Outpatient referral to oncology clinic placed at discharge for follow-up and establish care following biopsy results. He received 1 packed red blood cell with improvement in anemia. Renal function improved. He remains slightly hypercalcemic and mildly hyponatremic suspected secondary to underlying malignant process. Physical Exam Narrative: General: Patient is awake and alert. Head: Normocephalic. Atraumatic. EOM intact. Hard of hearing. Neck: No JVD. Cardiovascular: RRR. No gallops. No murmurs. No peripheral edema. Lungs: Clear to auscultation, no use of accessory muscles, no crackles or wheezes. Skin: No jaundice. No rashes. Abdomen: Normal bowel sounds, abdomen soft and nontender. Genito Urinary: Genital exam not performed since complaints not related. Rectal: Rectal exam not performed since no symptoms indicated blood loss. Extremities: No cyanosis or clubbing. Musculoskeletal: No swollen or erythematous joints. Neurological: Moves all 4 extremities. No myoclonus. Discharge Data Studies Completed and Pending Completed Studies During Hospitalization Category Date Time Status CT chest wo con [id number] Stat Cat Scan 05/31/24 22:[address] lumbar spine wo con* [id number] Stat Cat Scan 05/31/24 22:18 Completed XR chest 1V portable [id number] Stat Exams 05/31/24 19:10 Completed US biopsy [id number] Routine Ultrasound 06/01/24 08:28 Completed Pending at discharge Category Date Time Status Blood Culture Routine Lab 05/31/24 23:39 Results Fecal Occult Blood [Immunochemical Fecal OCB] Routine Lab 06/01/24 11:47 Uncollected KAPPA/LAMBDA Light Free Serum Routine Lab 06/01/24 10:49 Received [place] Free Light Chains Urine Routine Lab 06/01/24 08:26 Received SARS Covid-2 Antigen Stat Lab 06/05/24 09:02 Uncollected Radiology Impressions Chest X-Ray 05/31/24 19:10 IMPRESSION: No acute cardiopulmonary findings. Chest CT 05/31/24 22:18 IMPRESSION: 1. Numerous enlarged supraclavicular, axillary, and hilar lymph nodes. In conjunction with upper abdominal lymphadenopathy, findings are compatible with a lymphoproliferative disorder such as lymphoma/leukemia. 2. Bibasilar atelectasis. No active airspace disease. 3. Splenomegaly. 4. Additional ancillary findings as above. Lumbar Spine CT 05/31/24 22:18 IMPRESSION: 1. No acute osseous findings. 2. Multilevel lumbar spondylosis with areas of severe spinal stenosis and severe bilateral foraminal narrowing. 3. Retroperitoneal lymphadenopathy, better assessed on same day CT abdomen/pelvis. Biopsy Ultrasound 06/01/24 08:28 IMPRESSION: Uncomplicated LEFT axillary lymph node biopsy. Laboratory Results WBC 8.99 10^3/uL (3.29-11.43) 06/05/24 03:31 RBC 3.08 10^6/uL (3.85-5.65) L 06/05/24 03:31 Hgb 8.80 g/dL (11.27-16.99) L 06/05/24 03:31 Hct 28.0 % (37-53) L 06/05/24 03:31 MCV 90.9 fl (82-101) 06/05/24 03:31 MCH 28.6 pg (27-33) 06/05/24 03:31 MCHC 31.4 g/dL (30-55) 06/05/24 03:31 RDW 15.2 % (12.1-15.1) H 06/05/24 03:31 Plt Count 143 10^3/cmm (157-399) L 06/05/24 03:31 MPV 8.3 fL (7.4-10.4) 06/05/24 03:31 Neut % (Auto) 40.8 % 06/04/24 03:13 Lymph % (Auto) Not Reportable 06/05/24 03:31 [place] % (Auto) Not Reportable 06/05/24 03:31 Eos % (Auto) 1.1 % 06/04/24 03:13 Baso % (Auto) 0.4 % 06/04/24 03:13 Neut # (Auto) 2.96 10^3/uL (1.8-7.7) 06/04/24 03:13 Lymph # (Auto) Not Reportable 06/05/24 03:31 [place] # (Auto) Not Reportable 06/05/24 03:31 Eos # (Auto) 0.1 10^3/uL (0.0-0.8) 06/04/24 03:13 Baso # (Auto) 0.0 10^3/uL (0.0-0.1) 06/04/24 03:13 Nucleated RBC % (auto) 0 % 06/04/24 03:13 Total Counted 100 (0-100) 06/05/24 03:31 Atypical Lymphs % 3.0 % (0-5) 06/05/24 03:31 Absolute Neutrophils 3.8 10^3/cmm (1.4-6.5) 06/05/24 03:31 Segmented Neutrophils 41 % 06/05/24 03:31 Abs Segm Neuts (Man) 3.7 10/cmm (1.6-7.1) 06/05/24 03:31 Band Neutrophils 1.0 % 06/05/24 03:31 Abs Band Neuts (Man) 0.1 10^3/cmm (0.0-1.2) 06/05/24 03:31 Absolute Lymphocytes 4.2 10^3/cmm (1.2-3.4) H 06/05/24 03:31 Lymphocytes (Manual) 44 % 06/05/24 03:31 Monocytes (Manual) 6.0 % 06/05/24 03:31 Absolute Monocytes 0.5 10^3/cmm (0.1-0.6) 06/05/24 03:31 Eosinophils (Manual) 0 % 06/05/24 03:31 Absolute Eosinophils 0.0 10^3/cmm (0.0-0.7) 06/05/24 03:31 Basophils (Manual) 0.0 % 06/05/24 03:31 Absolute Basophils 0.0 10^3/cmm (0.0-0.2) 06/05/24 03:31 Metamyelocytes 3.0 % 06/05/24 03:31 Myelocytes 2.0 % 06/05/24 03:31 Nucleated RBCs # 0.0 /100WBC 06/04/24 03:13 Platelet Estimate Normal (Normal) 06/05/24 03:31 Peripher Smr Path Cons Sent for review 05/31/24 19:24 ESR 61 mm/hr (0-10) H 05/31/24 19:24 Haptoglobin 199.0 mg/L (30-200) 06/01/24 08:30 PT 17.80 SECONDS (12.1-14.9) H 05/31/24 23:34 INR 1.42 (0.8-1.2) H 05/31/24 23:34 APTT 36.3 SECONDS (23.9-36.7) 05/31/24 23:34 Sodium 130 mmol/L (136-145) L 06/05/24 03:31 Potassium 3.8 mmol/L (3.5-5.1) 06/05/24 03:31 Chloride 98 mmol/L (98-107) 06/05/24 03:31 Carbon Dioxide 24 mmol/L (22-29) 06/05/24 03:31 Anion Gap 11.8 (5-19) 06/05/24 03:31 BUN 22 mg/dL (8-23) 06/05/24 03:31 Creatinine 1.1 mg/dL (0.7-1.2) 06/05/24 03:31 GFR Calculation Not Reportable 06/05/24 03:31 Glucose 105 mg/dL (65-115) 06/05/24 03:31 Estimat Average Glucose 128 05/31/24 23:34 Hemoglobin A1c 6.1 % (4.0-6.0) H 05/31/24 23:34 Calculated Osmolality 274 mOsm/kg (285-295) L 06/05/24 03:31 Lactic Acid 1.5 mmol/L (0.5-2.2) 05/31/24 23:34 Uric Acid 7.2 mg/dL (3.4-7.0) H 06/04/24 03:13 Calcium 11.3 mg/dL (8.5-10.5) H 06/05/24 03:31 Magnesium 1.7 mg/dL (1.7-2.3) 06/04/24 03:13 Iron 23 ug/dL (59-158) L 05/31/24 20:59 TIBC 59 mcg/dl 05/31/24 20:59 % Saturation 38.9 % (20-50) 05/31/24 20:59 Unsat Iron Binding 36 ug/dL (112-347) L 05/31/24 20:59 Transferrin 61 mg/dL (200-360) L 05/31/24 20:59 Ferritin 1034 ng/mL (30-400) H 05/31/24 20:59 Total Bilirubin 0.9 mg/dL (0.15-1.2) 06/05/24 03:31 AST 55 U/L (0-40) H 06/05/24 03:31 ALT 27 U/L (0-41) 06/05/24 03:31 Alkaline Phosphatase 81 U/L (40-130) 06/05/24 03:31 Lactate Dehydrogenase 118 U/L (135-225) L 06/04/24 03:13 Creatine Kinase 70 U/L (39-308) 05/31/24 19:24 Troponin T Baseline 33 ng/L (0-15) H 05/31/24 19:24 Troponin T 120 Minute 33.28 ng/L (0-15) H 05/31/24 20:59 Delta Troponin T 0.28 ABS# (0-10) 05/31/24 20:59 Troponin T Hi Sens 6Hr 33.86 ng/L (0-15) H 06/01/24 02:00 Troponin T Hi Sens 6Hr Delta 0.86 ng/L (0-12) 06/01/24 02:00 C-Reactive Protein 143.5 mg/L (0.0-4.9) H 05/31/24 19:24 NT-Pro-B Natriuret Pep 1897 pg/mL (0-450) H 05/31/24 20:59 Total Protein 6.5 g/dL (6.6-8.7) L 06/05/24 03:31 Albumin 1.7 g/dL (3.5-5.2) L 06/05/24 03:31 Globulin 4.8 g/dL (1.3-4.6) H 06/05/24 03:31 Jpyon-0-Dwvdkbfrb 0.6 g/dL (0.2-0.3) H 06/01/24 10:49 Imwoh-9-Gqgeoyeyr 0.7 g/dL (0.5-0.9) 06/01/24 10:49 Prgq-4-Yaynzdgn 0.2 g/dL (0.4-0.6) L 06/01/24 10:49 Prrw-2-Lgyjyufa 0.4 g/dL (0.2-0.5) 06/01/24 10:49 Ljql-4-Kutikqzxqaxsf 13.70 mg/L (< OR = 2.51) H 05/31/24 19:35 Gamma Globulins 2.7 g/dL (0.8-1.7) H 06/01/24 10:49 Abnorm Protein Band 1 0.9 g/dL (NONE DETECTED) H 06/01/24 10:49 Triglycerides 106 mg/dL (0-150) 05/31/24 23:34 Cholesterol 110 mg/dL (0-200) 05/31/24 23:34 LDL Cholesterol, Calc 74 mg/dL (50-129) 05/31/24 23:34 HDL Cholesterol 15 mg/dL (60-100) L 05/31/24 23:34 LDL/HDL Ratio 4.93 RATIO (0.00-3.22) H 05/31/24 23:34 Cholesterol/HDL Ratio 7.33 mg/dL (1.0-5.00) H 05/31/24 23:34 Procalcitonin 1.05 ng/mL (0-0.5) H 05/31/24 20:59 TSH 0.94 uIU/mL (0.27-4.20) 05/31/24 23:34 Random Cortisol 18.02 ug/dL (2.47-19.5) 06/04/24 03:13 Urine Color Yellow (Yellow) 05/31/24 20:12 Urine Appearance Slightly cloudy (CLEAR) 05/31/24 20:12 Urine pH 5 (5-7) 05/31/24 20:12 Ur Specific [place] 1.020 (1.005-1.030) 05/31/24 20:12 Urine Protein Trace (Negative) 05/31/24 20:12 Urine Glucose (UA) Norm (Normal) 05/31/24 20:12 Urine Ketones 1+ (Negative) H 05/31/24 20:12 Urine Blood 2+ (Negative) H 05/31/24 20:12 Urine Nitrate Negative (Negative) 05/31/24 20:12 Urine Bilirubin 1+ (Negative) H 05/31/24 20:12 Urine Urobilinogen 4 mg/dL (Negative) H 05/31/24 20:12 Ur Leukocyte Esterase Negative (Negative) 05/31/24 20:12 Urine RBC 0-4 /hpf (0-2) H 05/31/24 20:12 Urine WBC 0-4 /hpf (0-5) H 05/31/24 20:12 Ur Squamous Epith Cells None /hpf (0-5) 05/31/24 20:12 Amorphous Sediment Not Reportable 05/31/24 20:12 Urine Bacteria Trace /hpf (NONE) 05/31/24 20:12 Hyaline Casts 5-10 /lpf H 05/31/24 20:12 Urine Mucus 2+ /hpf 05/31/24 20:12 U Abnormal Prot Band 2 Not Reportable 06/01/24 10:49 U Abnormal Prot Band 3 Not Reportable 06/01/24 10:49 Pro Electrophoresis Int See note 06/01/24 10:49 Lymphoma Panel Cancelled 05/31/24 23:34 Immunophenotype Interp See report 05/31/24 23:34 Blood Type A Positive 06/01/24 03:10 Rho(D) Type Rh positive 06/01/24 03:10 Antibody Screen Negative 06/01/24 03:10 Crossmatch See Detail 06/01/24 03:10 Procedures Performed Uncomplicated LEFT axillary lymph node biopsy. Vitals Last Vital Signs Temp 97.7 F 06/05/24 07:22 Pulse 79 06/05/24 07:22 Resp 19 H 06/05/24 07:22 BP 100/55 06/05/24 07:22 Pulse Ox 92 06/05/24 07:22 O2 Del Method Room Air 06/05/24 07:22 Discharge Plan Discharge Patient Disposition: Xfer SNF Condition: Stable Prescriptions: New tamsulosin 0.4 mg Capsule 0.4 mg PO BEDTIME 30 Days Qty: 30 0RF pantoprazole 40 mg Tablet,Delayed Release (Dr/Ec) 40 mg PO BID 30 Days Qty: 60 0RF lisinopril 2.5 mg tablet 2.5 mg PO DAILY Qty: 30 0RF Continued famotidine [Pepcid] 20 mg tablet 20 mg PO BID Qty: 60 11RF Discontinued aspirin 81 mg tablet,delayed release (DR/EC) 81 mg PO DAILY lisinopril 10 mg tablet 10 mg PO DAILY Qty: 90 3RF Discharge Orders: Discharge Order (Routine); Ordered 06/05/24 Ordered By: Orlin Call Referrals: Oncology Providers [Provider Group] - 4-7 days (Needs follow up after biopsy result. We have notified your physician's clinic of the need for a follow-up appointment to be scheduled. If you have not heard from them within the next 2 business days, please call them directly. ) [facility] [Outside] Zain Yañez MD [Primary Care Provider] - Discharge Diet: Advance as tolerated and Usual diet Discharge Activity: Resume usual activity and Increase activity as tolerated Patient Instructions: Opioid Safety, Pain Management Activity Restrictions/Additional Instructions: 1. Take medications as prescribed 2. Follow-up with a provider at within 1 week. 3. Ambulatory referral to oncology after biopsy result is resulted. Discharge Attestations Time Spent in Discharge Care*: greater than 30 min Quality Metrics Clinical Quality Measures [ No reported AMI, CVA or VTE this stay] Coding Level of Care Code Acute Code for Chg Fwd Diagnoses Acute encephalopathy G93.40 Abdominal lymphadenopathy R59.0 Elevated C-reactive protein R79.82 Generalized weakness R53.1 Fatigue R53.83 Anemia D64.9 Anemia type: unspecified type Acute hyponatremia E87.1 Acute kidney injury N17.9
[2024-06-05 11:04] LABS: SARS Covid-2 Antigen negative (Negative)
[2024-06-05 11:42] VITALS: BP 104/56; PULSE 75; RESP 18; TEMP 36.5; O2SAT 96
--- NOTE | 2024-06-05 12:33 | PC.SOCIAL ---
IMM Updated Updated pt on IMM. No questions voiced. Provided pt a copy. Initialed, dated, & timed copy in chart.
[2024-06-05 13:03] VITALS: BP 104/56; PULSE 75; RESP 18; TEMP 36.5; O2SAT 96
[2024-06-05 13:05] LABS: Kappa Free Light Chains Urine 382.06 mg/L (<=32.90)
[2024-06-05 13:36] LABS: KAPPA LIGHT CHAIN, FREE, SERUM 348.1 mg/L (3.3-19.4); KAPPA/LAMBDA LIGHT CHAINS FREE 1.92 (0.26-1.65); LAMBDA LIGHT CHAIN, FREE, SERU 181.3 mg/L (5.7-26.3)
== END 2024-06-05 12:23 | disposition skilled nursing facility (03) | DRG 840 ==
LOC: ER 22:21 → MEDSURG 22:39
PROVIDERS: Internal Medicine; Admitting Provider Family Medicine; Emergency Provider Emergency Medicine; PCP Family Medicine; Visit Provider Internal Medicine
DX: C85.94 Non-Hodgkin lymphoma, unspecified, lymph nodes of axilla and upper limb (principal); G93.41 Metabolic encephalopathy; E87.1 Hypo-osmolality and hyponatremia; N17.9 Acute kidney failure, unspecified; R79.82 Elevated C-reactive protein (CRP); R53.1 Weakness; R53.83 Other fatigue; R29.6 Repeated falls; D64.9 Anemia, unspecified; E83.52 Hypercalcemia; I10 Essential (primary) hypertension; Z79.899 Other long term (current) drug therapy; Z79.82 Long term (current) use of aspirin; R16.1 Splenomegaly, not elsewhere classified; E86.0 Dehydration
CPT/HCPCS: 36415; 36430; 70450; 71045; 71250; 72131; 74176; 76942; 80048; 80053; 80061; 81001; 82232; 82274; 82533; 82550; 82728; 83010; 83036; 83540; 83550; 83605; 83615; 83735; 83880; 83883; 84145; 84155; 84156; 84165; 84295; 84443; 84466; 84484; 84550; 85007; 85014; 85018; 85025; 85610; 85651; 85730; 86140; 86335; 86850; 86900; 86920; 87040; 87426; 88184; 88185; 88305; 88342; 93005; 94664; 96361; 96374; 97110; 97116; 97162; 97165; 97530; 99285; J1885; J1940; J2270; J2470; J7030; P9016